=== PATIENT | male | born 1955 | race Caucasian/White ===

== ENCOUNTER → 2020-05-15 12:52 | Outpatient (CLI) | payer MEDICARE, SELFPAY ==
[2020-05-15] MEDS: COVID-19 VACC, Ad26(JANSSEN)/PF 0.5 ML IM (13:11)
== END ==
PROVIDERS: Visit Provider Internal Medicine
DX: Z23 Encounter for immunization (principal)
CPT/HCPCS: 0031A; 91303

== ENCOUNTER → 2020-07-14 07:53 | Outpatient (CLI) | payer MEDICARE, SELFPAY ==
--- NOTE | 2020-07-14 | DI.US.S_ITS ---
PROCEDURE: US ABDOMEN LIMITED INDICATIONS: INTERMITTENT RIGHT INGUINAL LUMP TECHNIQUE: Real-time focused scanning was performed of the inguinal region, with image documentation. COMPARISON: None. FINDINGS: Assessment in the area of current clinical concern, right inguinal area, reveals no enlarged lymph nodes and no evidence of inguinal hernia at this time. IMPRESSION: No inguinal hernia found on the right. Dictated by: Maximino Odonnell M.D. on 07/14/2020 at 12:00 Approved by: Maximino Odonnell M.D. on 07/14/2020 at 12:01
== END ==
PROVIDERS: PCP Physician Assistant; Referring Provider Physician Assistant; Visit Provider Physician Assistant
DX: K40.90 Unilateral inguinal hernia, without obstruction or gangrene, not specified as recurrent (principal)
CPT/HCPCS: 76705

== ENCOUNTER → 2020-07-16 08:17 | Outpatient (CLI) | payer MEDICARE, SELFPAY ==
[2020-07-16 09:12] LABS: Add Manual Diff / Slide Review NO; Basophils Absolute Auto 100 /uL (0-100); Basophils Percent Auto 1.1 % (0-2); Eosinophils Absolute Auto 100 /uL (0-450); Eosinophils Percent Auto 1.5 % (2-4); Hematocrit 40.6 % (41-53); Hemoglobin 13.9 g/dL (13.5-17.5); Lymphocytes Absolute Auto 1500 /uL (1100-4500); Mean Corpuscular HGB Conc 34.3 % (30-36); Mean Corpuscular Hemoglobin 30.4 PG (26-34); Mean Corpuscular Volume 88.6 fL (80-100); Monocytes Absolute Auto 400 /uL (0-900); Monocytes Percent Auto 5.9 % (3-14); Neutrophils Absolute Auto 4000 /uL (1500-7000); Neutrophils Percent Auto 66.5 % (50-75); Platelet Count 220 X10^3/uL (150-400); Red Blood Cell Count 4.58 X10^6/uL (4.5-5.9); Red Cell Distribution Width 13.6 % (11.6-14.8)
[2020-07-16 09:52] LABS: Alanine Aminotransferase 25 IU/L (<50); Albumin 4.3 g/dL (3.5-5.0); Albumin Globulin Ratio 1.6 (1.0-2.8); Alkaline Phosphatase 55 U/L (38-126); Aspartate Aminotransferase 28 IU/L (17-59); BUN Creatinine Ratio 24.6 (6-22); Blood Urea Nitrogen 16 mg/dL (9-20); Calcium 9.8 mg/dL (8.4-10.2); Carbon Dioxide 32 mmol/L (22-32); Chloride 100 mmol/L (98-107); Cholesterol 211 mg/dL (140-199); Estimated Glomerular Filt Rate > 60.0 mL/min (>60); Globulin 2.7 g/dL (1.7-4.1); Glucose 99 mg/dL (80-110); HDL Cholesterol 56 mg/dL (40-60); HEMOLYSIS < 15 (0-50); LDL Cholesterol Calculated 140 mg/dL (<100); Potassium 4.1 mmol/L (3.4-5.1); Sodium 138 mmol/L (137-145); Triglycerides 75 mg/dL (35-150)
[2020-07-16 09:53] LABS: Bilirubin Total 0.7 mg/dL (0.2-1.3)
[2020-07-17 15:04] LABS: PSA, Total < 0.1 ng/mL (0.0-4.0)
== END ==
PROVIDERS: PCP Physician Assistant; Referring Provider Physician Assistant; Visit Provider Physician Assistant
DX: I10 Essential (primary) hypertension (principal); E78.2 Mixed hyperlipidemia; Z12.5 Encounter for screening for malignant neoplasm of prostate; Z85.46 Personal history of malignant neoplasm of prostate
CPT/HCPCS: 36415; 80053; 80061; 84153; 84154; 85025

== ENCOUNTER → 2020-07-21 11:23 | Outpatient (CLI) | payer MEDICARE, SELFPAY ==
--- NOTE | 2020-07-21 11:29 | DI.CT.S_ITS ---
PROCEDURE: CT ABDOMEN PELVIS W CON INDICATIONS: RIGHT LOWER QUADRANT PAIN TECHNIQUE: After the administration of oral and intravenous contrast, 5 mm thick sections acquired from the diaphragms to the symphysis. 5 mm thick coronal and sagittal reformats were performed. For radiation dose reduction, the following was used: automated exposure control, adjustment of mA and/or kV according to patient size. COMPARISON: None. FINDINGS: Image quality: Excellent. ABDOMEN: Lung bases: There is a 4 mm ground-glass nodule in the left lower lobe. Heart size is normal. Solid organs: Liver is normal in size and enhancement. Gallbladder is normal. Biliary system is non-dilated. Pancreas enhances normally. Spleen is normal in size and enhancement. No adrenal nodules. Kidneys are normal in size and enhancement, without hydronephrosis. There are bilateral low-density renal cortical nodules, most likely renal cysts. Peritoneum and bowel: Stomach, small bowel, and colon loops are normal in caliber and wall thickness. Appendix is normal. There is equivocal thickening of the descending and sigmoid colon. Rectum is thickened. There are a few colonic diverticula. No CT findings to suggest acute diverticulitis. No free fluid or air. Nodes and vessels: No retroperitoneal or mesenteric adenopathy. Aorta and inferior vena cava are normal in caliber. Miscellaneous: No ventral hernias. PELVIS: Genitourinary: Bladder wall thickness is normal. Prostate is surgically absent. adenopathy. Small fat containing inguinal hernias are noted. Bones: Small sclerotic foci in L2 and sacrum are most likely bone islands. No vertebral body compression fractures. Mild degenerative changes in lumbar spine. IMPRESSION: 1. A cause for right lower quadrant pain is not identified. Appendix is normal. 2. Equivocal thickening of descending and sigmoid colon, which may be secondary to artifact or mild colitis. 3. Diverticulosis without diverticulitis. 4. Prostatectomy. Rectum appears thickened, which could be secondary to post radiation change. 5. A 4 mm ground-glass nodule in the left lower lobe. Please see enclosed follow-up recommendation. Fleischner Society criteria for SUB-SOLID lung nodule followup. Solitary pure ground-glass nodules5 mm or lessNo followup needed. >5 mm3 mo follow-up CT to confirm persistence. Then annual CT for 3 years. Part-solid nodules3 mo follow-up CT to confirm persistence. If persistent with solid component <5 mm, annual CT for at least 3 years. If solid component is 5 mm or more, biopsy or surgical resection. Consider PET-CT for lesions > 10 mm. Multiple sub-solid nodulesPure ground glass nodules [address] at 2 and 4 years. Pure ground glass nodules >5 mm without dominant lesion. [address] to confirm persistence, then annual followup CT for at least 3 years. Dominant nodule(s) with part-solid or solid component. [address] to confirm persistence. If persistent, consider biopsy or surgical resection, shirley if lesions have >5 mm solid component. Dictated by: Hazel Nunez M.D. on 07/21/2020 at 16:13 Approved by: Hazel Nunez M.D. on 07/21/2020 at 17:23
[2020-07-21 11:58] LABS: Add Manual Diff / Slide Review NO; Basophils Absolute Auto 100 /uL (0-100); Basophils Percent Auto 1.1 % (0-2); Eosinophils Absolute Auto 100 /uL (0-450); Eosinophils Percent Auto 1.5 % (2-4); Hematocrit 41.1 % (41-53); Hemoglobin 14.3 g/dL (13.5-17.5); Lymphocytes Absolute Auto 1500 /uL (1100-4500); Lymphocytes Percent Auto 27.6 % (25-40); Mean Corpuscular HGB Conc 34.7 % (30-36); Mean Corpuscular Hemoglobin 30.7 PG (26-34); Mean Corpuscular Volume 88.4 fL (80-100); Monocytes Absolute Auto 300 /uL (0-900); Monocytes Percent Auto 6.1 % (3-14); Neutrophils Absolute Auto 3500 /uL (1500-7000); Neutrophils Percent Auto 63.7 % (50-75); Platelet Count 213 X10^3/uL (150-400); Red Blood Cell Count 4.66 X10^6/uL (4.5-5.9); Red Cell Distribution Width 13.8 % (11.6-14.8); White Blood Cell Count 5.4 X10^3/uL (4.5-11.0)
[2020-07-21 12:29] LABS: Alanine Aminotransferase 26 IU/L (<50); Albumin 4.6 g/dL (3.5-5.0); Albumin Globulin Ratio 1.4 (1.0-2.8); Alkaline Phosphatase 54 U/L (38-126); Aspartate Aminotransferase 33 IU/L (17-59); BUN Creatinine Ratio 21.5 (6-22); Bilirubin Total 0.9 mg/dL (0.2-1.3); Blood Urea Nitrogen 14 mg/dL (9-20); Carbon Dioxide 30 mmol/L (22-32); Chloride 99 mmol/L (98-107); Estimated Glomerular Filt Rate > 60.0 mL/min (>60); Globulin 3.4 g/dL (1.7-4.1); Glucose 103 mg/dL (80-110); HEMOLYSIS < 15 (0-50); Potassium 3.3 mmol/L (3.4-5.1); Sodium 138 mmol/L (137-145)
== END ==
PROVIDERS: PCP Physician Assistant; Referring Provider Physician Assistant; Visit Provider Physician Assistant
DX: R10.31 Right lower quadrant pain (principal); R91.1 Solitary pulmonary nodule; K57.90 Diverticulosis of intestine, part unspecified, without perforation or abscess without bleeding
CPT/HCPCS: 36415; 74177; 80053; 85025

== ENCOUNTER 2020-09-09 07:56 | Day surgery (SDC) | payer MEDICARE, SELFPAY ==
[2020-09-04 15:15] VITALS: BMI 28.3
[2020-09-09] VITALS (8 sets, daily range): BP systolic 117–155; BP diastolic 73–88; PULSE 51–70; RESP 12–21; TEMP 36.7–37.2; O2SAT 95–99; BMI 28.3
[2020-09-09] MEDS: LACTATED RINGERS 1,000 ML 42 ML IV (08:10)
[2020-09-09 09:04] LABS: COVID19 -Nasal RAPID Negative (Negative)
--- NOTE | 2020-09-09 09:37 | PM.PREOP ---
Pre-operative Note Interval Note History & Physical reviewed/Exam performed by Physician: Yes Changes to H&P: No
[2020-09-09] MEDS: CEFAZOLIN 1 GM VIAL 2 GM IV (09:55)
--- NOTE | 2020-09-09 10:02 | SUR.OPER ---
Supine on padded OR bed, head on pillow, arms secured on padded arm boards at <90 degrees abduction, legs uncrossed, safety belt at thigh, tape over blanket over lower legs, gel pad under bilateral heels.
[2020-09-09] MEDS: BUPIVACAINE 0.5% (PF) VIAL 30 ML INJ (10:07)
--- NOTE | 2020-09-09 11:14 | PM.OP.1 ---
Operative Date/Time/Diagnoses Date of procedure: 09/09/20 Time of procedure: 11:15 Pre-op diagnosis: right inguinal hernia Post-op diagnosis: same Procedure & Clinicians Procedure: open right inguinal hernia repair with mesh Same procedure as scheduled: Yes Indications: reducible inguinal hernia Surgeon: Charlie Laguna Yes if Unassisted: Yes Anesthesia Type: General Operative Notes Findings: large indirect hernia. no direct floor defect Specimen(s): none sent Estimated Blood Loss (mL): 20 Procedure in detail: The patient was placed supine on the table and bilateral lower extremity compression devices were applied. Anesthesia was induced they were intubated with an LMA and received 2g of Ancef. A time-out was performed. They were prepped and draped in sterile fashion. The right external inguinal ring and the anterior superior iliac crest were identified and marked. 1 finger breath above the inguinal ligament the skin was infiltrated with 0.25% bupivacaine. The skin incision was made here and the subcutaneous tissues were divided with electrocautery exposing the external oblique aponeurosis which was then opened along the direction of its fibers. Using blunt dissection the internal oblique aporneurosis was from the external oblique upper leaflet to identify the iliohypogastric nerve. Using a kittner the cord was carefully dissected away from the inguinal canal adjacent to the pubic tubercle. The cord including the vas deferens, testicular bloody supply, ilioguinal and genital nerve were encircled with a [place] drain. No direct floor defect was identified. The cremasteric fibers surrounding the cord were divided using electrocautery adjacent to the internal ring.. The vas deferens and the testicular vessels were preserved and protected. There was a moderate size indirect hernia on the anterior medial aspect of the cord which was skeletonized away from the vas deferens and testicular blood supply. The indirect hernia was skeletonized back to the internal ring and reduced spontaneously into the abdomen. I selected a 7x 15 cm lightweight Pro Loop hernia mesh. The inferior medial aspect of the mesh was anchored to insertion of the rectus muscle to the pubic tubercle such that there was approximately 2 cm of tubercle overlap with Ethibond and then was run continuously along the inferior edge of the mesh to the shelving edge of the inguinal ligament. Interrupted 3 0 Vicryl suture was used to anchor the superior aspect of the mesh to the conjoined tendon in several places. The tails were then reapproximated loosely around the spermatic cord. The tails of the mesh were then tucked under the external oblique aponeurosis. The repair was checked for hemostasis. The wound was irrigated with sterile saline. The external oblique aponeurosis was reapproximated in a running fashion using 3 0 Vicryl. The subcutaneous tissues were reapproximated with 3 0 Vicryl skin closed with 4 0 Monocryl followed by the application of Dermabond. At the end of the operation I ensured that both testicles were within the scrotum. The sponge instrument count at the end operation was correct. The patient emerged from anesthesia was extubated and transferred to the postoperative care unit in stable condition. A total of 30 ml of of 0.25% bupivicaine was used to infiltrate the skin. Complications: none Post-operative Condition: stable Disposition: same day surgery
[2020-09-09] MEDS: ACETAMINOPHEN 325 MG TABLET 975 MG PO (11:33)
--- NOTE | 2020-09-09 11:44 | SUR.PHASEI ---
Assumed care from ANTONIA Schneider. Pt had been medicated with tylenol, jiuce given, to OPD, stable PACU stay.
[2020-09-09] MEDS: OXYCODONE IR 5 MG TABLET PO (12:08)
--- NOTE | 2020-09-09 12:10 | SUR.PHASEII ---
Increased pain with moving, medicated with oxycodone 5mg after apple sauce tolerated. Pt up to BR, steady when up. Voided in BR. called, d/c instructions discussed.
--- NOTE | 2020-09-09 12:26 | SUR.PHASEII ---
Pt dressed, ready to go, left unit in stable condition.
== END 2020-09-09 12:31 | disposition home or self-care (01) ==
PROVIDERS: PCP Internal Medicine; Referring Provider Surgery; Visit Provider Surgery
PROC: (CPT 49505; principal; 2020-09-09 09:15)
DX: K40.90 Unilateral inguinal hernia, without obstruction or gangrene, not specified as recurrent (principal); I10 Essential (primary) hypertension; Z20.822 Contact with and (suspected) exposure to COVID-19
CPT/HCPCS: 49505; 87635; C1781; J0690; J2250; J2704; J3010

== ENCOUNTER → 2020-10-23 08:58 | Outpatient (CLI) | payer MEDICARE, SELFPAY ==
--- NOTE | 2020-10-23 | DI.ECHO.S_ITS ---
[facility]---------+ [facility] +---------+ : : [address] : : : : [id number] : : : : Phone: [phone]+ Echocardiogram Report + + :Name: AYAD AGUDELO Study Date: 10/23/2020 Height: 69 in : :[facility] ReadingLocation: Weight: 192 lb : : Gender: Male BSA: 2.0 m2 : :: 1955 Age: 65 yrs BP: 160/93 mmHg: :Reason For Study: MURMUR : :Ordering Physician: RUFINA, : :MILDRED Sales Performed By: Chiquis Mistry : :Referring: MILDRED ALMARAZ : + + Interpretation Summary The left ventricle is normal in size and wall thickness. The ejection fraction is estimated to be 50-55%. Septal motion is consistent with conduction abnormality. There is septal wall hypokinesis. Diastolic parameters suggest a relaxation abnormality of the left ventricle, consistent with probable normal filling pressures. The right ventricle is grossly normal size. The right ventricular systolic function is normal. There is mild tricuspid regurgitation. The right ventricular systolic pressure is estimated to be at least 36 mmHg based on an estimated right atrial pressure of 3 mm Hg. Procedure: A two-dimensional transthoracic echocardiogram with color flow and Doppler was performed. The study quality was technically adequate. There is no prior echocardiogram noted for this patient. The patient was in sinus rhythm with heart rates between 59-69 bpm during the exam. The patient had a bundle branch block rhythm during the exam. Left Ventricle: The left ventricle is normal in size and wall thickness. There is no thrombus. A false chord is noted (normal variant). The ejection fraction is estimated to be 50-55%. Septal motion is consistent with conduction abnormality. There is septal wall hypokinesis. Diastolic parameters suggest a relaxation abnormality of the left ventricle, consistent with probable normal filling pressures. Right Ventricle: The right ventricle is grossly normal size. The right ventricular systolic function is normal. Atria: The left atrium is mildly dilated. Right atrial size is normal. There is no Doppler evidence for an interatrial shunt. Mitral Valve: The mitral valve is normal in structure and function. There is trace mitral regurgitation. Aortic Valve: The aortic valve is trileaflet. The aortic valve opens well. There is mild aortic valve sclerosis. There is no aortic valve stenosis. Mildly increased LV outflow tract and aortic valve velocity without any obvious aortic stenosis or significant LV outflow tract stenosis. There is trace aortic regurgitation. Tricuspid Valve: The tricuspid valve is normal. There is mild tricuspid regurgitation. The right ventricular systolic pressure is estimated to be at least 36 mmHg based on an estimated right atrial pressure of 3 mm Hg. Pulmonic Valve: The pulmonic valve is not well seen, but is grossly normal. There is trace pulmonic regurgitation. Great Vessels: The aortic root is normal size. The ascending aorta is at the upper limits of normal in size. The IVC is of normal diameter and collapses greater than 50% with a sniff. This suggests a low right atrial pressure of 3 mm Hg. Pericardium/ Pleura There is no pericardial effusion. There is no pleural effusion. MMode/2D Measurements & Calculations LVIDd: 5.9 cm LVOT diam: 2.2 cm LVIDs: 4.2 cm Ao root diam: 3.4 cm FS: 29.9 % asc Aorta Diam: 3.8 cm IVSd: 1.0 cm Ao Arch Diam (Prox Trans): 2.9 cm LVPWd: 0.92 cm LV ahuja. diameter/BSA (cm/m^2): 2.9 LV sys. diameter/BSA (cm/m^2): 2.1 LA A2 area: 25.0 cm2 RA long axis: 5.5 cm LA A4 area: 17.4 cm2 RA area: 17.5 cm2 LA length (vol): 4.7 cm RA vol: 47.2 ml LA vol: 78.3 ml RA : 23.2 ml/m2 LA vol index: 38.6 ml/m2 IVC diam: 1.2 cm RVD1 (basal): 4.2 cm TAPSE: 2.5 cm Doppler Measurements & Calculations Ao V2 max: 207.2 cm/sec LVOT Max Jeremie: 113.5 cm/sec Ao V2 mean: 145.0 cm/sec LV V1 max P.2 mmHg Ao max P.2 mmHg LV V1 VTI: 20.6 cm Ao mean P.4 mmHg DWAINE(I,D): 2.1 cm2 Ao V2 VTI: 38.1 cm DWAINE(V,D): 2.1 cm2 sev ratio: 0.54 DWAINE indexed to BSA (cm^2/m^2): 1.0 MV E max jeremie: 62.2 cm/sec PA V2 max: 146.8 cm/sec MV A max jeremie: 96.1 cm/sec PA V2 mean: 94.5 cm/sec MV E/A: 0.65 PA mean P.9 mmHg Med Peak E' Jeremie: 5.1 cm/sec PA pr(Accel): 43.0 mmHg E/E' med: 12.3 Lat Peak E' Jeremie: 6.8 cm/sec E/E' lat: 9.2 E/e' average: 10.7 MV dec time: 0.28 sec SV(LVOT): 78.3 ml Reading Physician:02:43 PM
== END ==
PROVIDERS: PCP Internal Medicine; Referring Provider Internal Medicine; Visit Provider Internal Medicine
DX: I08.2 Rheumatic disorders of both aortic and tricuspid valves (principal); R01.1 Cardiac murmur, unspecified
CPT/HCPCS: 93306

== ENCOUNTER → 2020-10-27 11:54 | Outpatient (CLI) | payer MEDICARE, SELFPAY ==
--- NOTE | 2020-10-27 | DI.US.S_ITS ---
PROCEDURE: US ABD AORTA ANEURYSM SCREEN INDICATIONS: AAA SCREENING TECHNIQUE: Real time scanning was performed of the aorta and iliac arteries, with image documentation. COMPARISON: None. FINDINGS: Aorta: Proximal aortic diameter measures 2.8 cm. Mid-aorta measures 2.5 cm. Distal aortic diameter is 1.9 cm. Iliac arteries: Right common iliac artery measures 1.3 cm. Left common iliac artery measures 1.4 cm. IMPRESSION: No abdominal aortic aneurysm. Dictated by: Derrek Gallagher M.D. on 10/27/2020 at 12:21 Approved by: Derrek Gallagher M.D. on 10/27/2020 at 12:22
== END ==
PROVIDERS: PCP Internal Medicine; Referring Provider Internal Medicine; Visit Provider Internal Medicine
DX: Z13.6 Encounter for screening for cardiovascular disorders (principal)
CPT/HCPCS: 76706

== ENCOUNTER → 2021-01-21 10:01 | Outpatient (CLI) | payer MEDICARE, SELFPAY ==
[2021-01-21 11:49] LABS: COVID19 -Nasal RAPID Negative (Negative)
== END ==
PROVIDERS: PCP Internal Medicine; Referring Provider Nurse Practitioner Family; Visit Provider Nurse Practitioner Family
DX: Z20.822 Contact with and (suspected) exposure to COVID-19 (principal)
CPT/HCPCS: 87635; C9803

== ENCOUNTER → 2021-01-22 09:44 | Outpatient (CLI) | payer MEDICARE, SELFPAY ==
--- NOTE | 2021-01-22 21:02 | DI.NM.S_ITS ---
DATE OF SERVICE: 01/22/2021 PROCEDURE: Pharmacological perfusion study. INDICATION: Newly-formed left bundle branch block, hypertension. RADIOPHARMACEUTICAL: 26.7 millicurie technetium-99m Myoview IV was injected at stress and 12.1 millicurie technetium-99m Myoview IV was injected at rest. CARDIAC STRESS: The patient underwent IV Lexiscan perfusion study under the supervision of an attending staff using standard intravenous Lexiscan, as per protocol. The patient remained hemodynamically stable. No significant symptoms reported, other than some shortness of breath. Baseline rhythm was sinus with left bundle branch block. During stress, no new convincing ischemic changes seen or new significant arrhythmias seen. RAW DATA: There is increased subdiaphragmatic activity. GATED STUDY: Resting LV ejection fraction 61 and stress LV ejection 68 percent without any significant wall motion abnormalities. Resting end-diastolic volume 178 mL. TID ratio 0.92, which is within normal limits. Lung/heart ratio 0.32, which is within normal limits. MYOCARDIAL PERFUSION SCAN: Stress supine and resting supine, as well as stress prone images were compared to each other. Resting and stress supine images revealed moderate-size, moderately decreased perfusion of base to mid inferior wall, as well as a small to moderate size, mild to moderately decreased perfusion of mid to distal anterior septum. Resting supine images also revealed mild to moderately decreased perfusion of inferior apex. During stress prone images, base to mid inferior wall defect got resolved, suggestive of diaphragmatic tissue attenuation artifact. There was persistent mild to moderately decreased perfusion of mid to distal anterior septum, which did not got resolved during prone images. CONCLUSION: 1. No obvious reversible ischemia. 2. Evidence of diaphragmatic tissue attenuation artifact, which got resolved during prone images. 3. Predominantly fixed mid to distal anterior septal defect. Likely, this is due to left bundle branch block, as there were no significant perfusion defects seen in the left anterior descending distribution, as most likely this is due to left bundle branch block. Preserved left ventricular function. Overall, this is a low-risk myocardial perfusion scan. Kulwinder Cotton - KATIE/sol/lou doc#: [id number]/job#: [id number] dd: 01/22/2021 17:06:00 dt: 01/22/2021 20:51:00 DICTATING MD/COPIES TO: Kevyn Lamas MD COPIES MNE: EMILIE;
== END ==
PROVIDERS: PCP Internal Medicine; Referring Provider Internal Medicine Cardiovascular Disease; Visit Provider Internal Medicine Cardiovascular Disease
DX: I44.7 Left bundle-branch block, unspecified (principal); I10 Essential (primary) hypertension
CPT/HCPCS: 78452; 93017; A9502; J2785

== ENCOUNTER → 2021-02-06 09:09 | Outpatient (CLI) | payer MEDICARE, SELFPAY ==
[2021-02-06 10:24] LABS: Add Manual Diff / Slide Review NO; Basophils Absolute Auto 100 /uL (0-100); Basophils Percent Auto 1.3 % (0-2); Eosinophils Absolute Auto 0 /uL (0-450); Hematocrit 39.3 % (41-53); Hemoglobin 13.9 g/dL (13.5-17.5); Lymphocytes Absolute Auto 1200 /uL (1100-4500); Lymphocytes Percent Auto 30.2 % (25-40); Mean Corpuscular HGB Conc 35.3 % (30-36); Mean Corpuscular Hemoglobin 31.3 PG (26-34); Mean Corpuscular Volume 88.6 fL (80-100); Monocytes Absolute Auto 200 /uL (0-900); Monocytes Percent Auto 6.1 % (3-14); Neutrophils Absolute Auto 2400 /uL (1500-7000); Neutrophils Percent Auto 61.4 % (50-75); Platelet Count 246 X10^3/uL (150-400); Red Blood Cell Count 4.44 X10^6/uL (4.5-5.9); Red Cell Distribution Width 13.2 % (11.6-14.8)
[2021-02-06 10:36] LABS: BUN Creatinine Ratio 19.5 (6-22); Blood Urea Nitrogen 15 mg/dL (9-20); Calcium 10.1 mg/dL (8.4-10.2); Carbon Dioxide 34 mmol/L (22-32); Chloride 99 mmol/L (98-107); Cholesterol 209 mg/dL (140-199); Estimated Glomerular Filt Rate > 60.0 mL/min (>60); Glucose 97 mg/dL (80-110); HDL Cholesterol 55 mg/dL (40-60); HEMOLYSIS < 15 (0-50); LDL Cholesterol Calculated 142 mg/dL (<100); Potassium 3.8 mmol/L (3.4-5.1); Sodium 138 mmol/L (137-145); Triglycerides 60 mg/dL (35-150)
== END ==
PROVIDERS: PCP Internal Medicine; Referring Provider Internal Medicine Cardiovascular Disease; Visit Provider Internal Medicine Cardiovascular Disease
DX: I10 Essential (primary) hypertension (principal); E78.5 Hyperlipidemia, unspecified
CPT/HCPCS: 36415; 80048; 80061; 85025

== ENCOUNTER → 2022-01-12 11:04 | Outpatient (CLI) | payer MEDICARE, SELFPAY ==
[2022-01-12 12:04] LABS: Add Manual Diff / Slide Review NO; Basophils Absolute Auto 0 /uL (0-100); Basophils Percent Auto 0.9 % (0-2); Eosinophils Absolute Auto 100 /uL (0-450); Hematocrit 42.5 % (41-53); Hemoglobin 14.8 g/dL (13.5-17.5); Lymphocytes Absolute Auto 1300 /uL (1100-4500); Lymphocytes Percent Auto 25.5 % (25-40); Mean Corpuscular HGB Conc 34.8 % (30-36); Mean Corpuscular Hemoglobin 30.8 PG (26-34); Mean Corpuscular Volume 88.4 fL (80-100); Monocytes Absolute Auto 300 /uL (0-900); Monocytes Percent Auto 6.6 % (3-14); Neutrophils Absolute Auto 3400 /uL (1500-7000); Platelet Count 208 X10^3/uL (150-400); Red Cell Distribution Width 13.9 % (11.6-14.8); White Blood Cell Count 5.1 X10^3/uL (4.5-11.0)
[2022-01-12 12:25] LABS: BUN Creatinine Ratio 20.3 (6-22); Blood Urea Nitrogen 15 mg/dL (9-20); Calcium 9.5 mg/dL (8.4-10.2); Carbon Dioxide 30 mmol/L (22-32); Chloride 98 mmol/L (98-107); Cholesterol 163 mg/dL (140-199); Estimated Glomerular Filt Rate > 60 mL/min (>60); Glucose 99 mg/dL (80-110); HDL Cholesterol 55 mg/dL (40-60); HEMOLYSIS < 15 (0-50); LDL Cholesterol Calculated 98 mg/dL (<100); Potassium 3.9 mmol/L (3.4-5.1); Sodium 138 mmol/L (137-145); Triglycerides 49 mg/dL (35-150)
== END ==
PROVIDERS: PCP Internal Medicine; Referring Provider Internal Medicine Cardiovascular Disease; Visit Provider Internal Medicine Cardiovascular Disease
DX: E78.5 Hyperlipidemia, unspecified (principal); I10 Essential (primary) hypertension
CPT/HCPCS: 36415; 80048; 80061; 85025

== ENCOUNTER → 2022-01-18 08:59 | Outpatient (CLI) | payer MEDICARE, SELFPAY ==
--- NOTE | 2022-01-18 | DI.ECHO.S_ITS ---
[facility]---------+ [facility] +---------+ : : [address] : [address] : : : : [id number] : : : : Phone: [phone]---------+ Echocardiogram Report + + :Name: AYAD AGUDELO Study Date: 01/18/2022 Height: 69 in : :[facility] ReadingLocation: Weight: 185 lb : : Gender: Male BSA: 2.0 m2 : :: 1955 Age: 66 yrs BP: 137/83 mmHg: :Reason For Study: LBBB, CARDIOMYPATHY : :Ordering Physician: JOVITA, : :LUCIUS Performed By: Chiquis Mistry : :Referring: LUCIUS JAIN : + + Interpretation Summary 1) Normal left ventricular size with low normal systolic function (EF 50-55%). 2) Normal right ventricular size and function. 3) No significant valvular abnormalities. 4) Compared to the echo done 10/23/2020, no significant change. Procedure: A two-dimensional transthoracic echocardiogram with color flow and Doppler was performed. The study quality was technically adequate. Comparison is made with the echocardiogram of 10/23/2020. The patient was in sinus bradycardia with heart rates between 50-55 bpm during the exam. Left Ventricle: The left ventricle is normal in size. There is mild concentric left ventricular hypertrophy. The ejection fraction is estimated to be 50-55%. There is a mild dyssynchronous contraction pattern, consistent with a conduction abnormality. Right Ventricle: The right ventricle is normal in size and function. Atria: The left atrium is moderately dilated. Right atrial size is normal. There is no Doppler evidence for an interatrial shunt. Mitral Valve: The mitral valve is normal in structure and function. There is mild mitral regurgitation. Aortic Valve: The aortic valve is trileaflet. The aortic valve opens well. There is no aortic valve stenosis. The peak aortic velocity is 2.01 m/sec. The aortic valve mean gradient is 8 mmHg. The calculated aortic valve area is 2.1 cm2. There is trace aortic regurgitation. Tricuspid Valve: The tricuspid valve is normal in structure and function. There is mild to moderate tricuspid regurgitation. The right ventricular systolic pressure is estimated to be at least 31 mmHg based on an estimated right atrial pressure of 3 mm Hg. Pulmonic Valve: The pulmonic valve is not well visualized. There is trace pulmonic regurgitation. Great Vessels: The aortic root is normal size. The dimensions of the ascending aorta are normal. The IVC is of normal diameter and collapses greater than 50% with a sniff. This suggests a low right atrial pressure of 3 mm Hg. Pericardium/ Pleura There is no pericardial effusion. There is no pleural effusion. MMode/2D Measurements & Calculations LVIDd: 5.4 cm LVOT diam: 2.2 cm LVIDs: 4.0 cm Ao root diam: 3.4 cm FS: 26.5 % asc Aorta Diam: 3.9 cm EPSS: 0.69 cm Ao Arch Diam (Prox Trans): 3.4 cm IVSd: 1.2 cm LVPWd: 1.0 cm LV ahuja. diameter/BSA (cm/m^2): 2.7 LV sys. diameter/BSA (cm/m^2): 2.0 LA A2 area: 25.3 cm2 RA long axis: 5.6 cm LA A4 area: 20.5 cm2 RA area: 18.8 cm2 LA length (vol): 4.8 cm RA vol: 53.2 ml LA vol: 91.0 ml RA : 26.6 ml/m2 LA vol index: 45.5 ml/m2 IVC diam: 1.1 cm RVD1 (basal): 3.6 cm TAPSE: 2.0 cm Doppler Measurements & Calculations Ao V2 max: 201.1 cm/sec LVOT Max Jeremie: 110.1 cm/sec Ao V2 mean: 129.3 cm/sec LV V1 max P.8 mmHg Ao max P.2 mmHg LV V1 VTI: 22.8 cm Ao mean P.8 mmHg DWAINE(I,D): 2.0 cm2 Ao V2 VTI: 43.0 cm DWAINE(V,D): 2.1 cm2 sev ratio: 0.53 DWAINE indexed to BSA (cm^2/m^2): 1.0 MV E max jeremie: 76.2 cm/sec TR max jeremie: 263.5 cm/sec MV A max jeremie: 89.4 cm/sec TR max P.8 mmHg MV E/A: 0.85 PA V2 max: 120.2 cm/sec Med Peak E' Jeremie: 4.2 cm/sec PA V2 mean: 83.6 cm/sec E/E' med: 18.0 PA mean P.1 mmHg Lat Peak E' Jeremie: 7.8 cm/sec PA pr(Accel): 34.5 mmHg E/E' lat: 9.7 E/e' average: 13.9 MV dec time: 0.32 sec SV(OT): 86.1 ml Reading Physician:11:47 PM
== END ==
PROVIDERS: PCP Internal Medicine; Referring Provider Internal Medicine Cardiovascular Disease; Visit Provider Internal Medicine Cardiovascular Disease
DX: I44.7 Left bundle-branch block, unspecified (principal); I42.9 Cardiomyopathy, unspecified; I08.1 Rheumatic disorders of both mitral and tricuspid valves
CPT/HCPCS: 93306